=== PATIENT | female | born 1970 | race Caucasian/White ===

== ENCOUNTER → 2018-07-22 | Outpatient (CLI) | payer OTHER ==
--- NOTE | 2018-07-24 10:13 | MR ---
EXAMINATION TYPE: MR brain/cspine wo DATE OF EXAM: 07/22/2018 8:46 PM COMPARISON: NONE HISTORY: Bilateral occipital neuralgia, Neck pain Multiplanar and multispin-echo imaging of the brain was performed . The ventricles, basal cisterns and sulci overlying the cerebral convexities are within normal limits. There is no evidence for midline shift or mass effect. Acute intracranial hemorrhage or extra-axial collection is not evident. The brain parenchyma reveals no abnormal increased signal. No acute edema is identified. The paranasal sinuses and mastoid air cells are well-aerated. IMPRESSION: Unremarkable MRI of the brain. EXAMINATION TYPE: MR brain/cspine wo DATE OF EXAM: 07/22/2018 8:46 PM COMPARISON: NONE HISTORY: Bilateral occipital neuralgia, Neck pain Multiplanar MultiSpin echo imaging of the cervical spine was performed. Comparison: none C2-C3: No evidence for degenerative disc disease. No disc bulge/herniation or protrusion. No Canal stenosis. Foramina are patent bilaterally. C3-C4: There is mild disc desiccation. Posterior disc bulge noted. Minimal effacement ventral thecal sac. No evidence for central stenosis or disc herniation. No foraminal encroachment. C4-C5: Moderate disc desiccation. Moderate circumferential disc bulge with partially encapsulating sp ur resulting in disc endplate complex. There is a moderate effacement of the ventral thecal sac with moderate central stenosis. Degenerative change of the bilateral cervical apophyseal joints resulting in bilateral foraminal encroachment. C5-C6: Moderate disc desiccation. Moderate circumferential disc bulge with partially encapsulating sp ur resulting in disc endplate complex greatest paracentrally and to the left. There is a moderate eff acement of the ventral thecal sac with moderate central stenosis. Degenerative change of the bilatera l cervical apophyseal joints resulting in bilateral foraminal encroachment. C6-C7: Moderate disc desiccation. Moderate circumferential disc bulge greatest posterior centrally an d to the left. Effacement ventral thecal sac and left foraminal encroachment. No evidence for central stenosis. C7-T1: No evidence for degenerative disc disease. No disc bulge/herniation or protrusion. No Canal stenosis. Foramina are patent bilaterally. Cervical segments are intact. There is normal alignment. Cervical spinal cord is of normal signal. Craniovertebral junction relationships are within normal limits. IMPRESSION: 1. Multilevel degenerative disc disease. 2. Central stenosis at C4-5 and C5-6. 3. Multilevel foraminal encroachment.
== END | disposition home or self-care (01) ==
LOC: RADMRIMAIN 19:55
PROVIDERS: ATTEND Psychiatry & Neurology Neurology
DX: M48.02 Spinal stenosis, cervical region (principal); M50.30 Other cervical disc degeneration, unspecified cervical region; G43.009 Migraine without aura, not intractable, without status migrainosus; M54.81 Occipital neuralgia
CPT/HCPCS: 70551; 72141

== ENCOUNTER → 2018-09-14 | Outpatient (CLI) | payer OTHER ==
[2018-09-13 15:35] VITALS: BMI 38.9
[2018-09-14 12:50] VITALS: BP 120/82; PULSE 75; RESP 18
--- NOTE | 2018-09-14 13:09 | P.PAINCN ---
History of Present Illness - Reason for Consult Consult date: 09/14/18 - History of Present Illness This is an initial consultation visit for this 47 years old female with a chronic history of severe neck pain and headache, she reported that she started having headache when she was 9 years old, and intensity of the headache progressed over time and currently she is having neck pain associated with a headache, the pain mostly on the right side, and she's been diagnosed with occipital neuralgia and she was referred to [facility] pain clinic for occipital nerve block, denies any motor or sensory deficit she denies any fever or night sweats she denies any change in the bowel movement or urination, she denies any numbness or tingling sensation in the upper extremities , she reported that the neck movement could aggravate her neck pain and headache ,she reported that all her symptoms only on the right side. Past Medical History Additional Past Medical History / Comment(s): migraine headache, during - induced dtp History of Any Multi-Drug Resistant Organisms: None Reported Past Surgical History: Hysterectomy Additional Past Surgical History / Comment(s): "partial hysterectomy-left ovaries" Past Anesthesia/Blood Transfusion Reactions: No Reported Reaction Past Psychological History: No Psychological Hx Reported Smoking Status: Former smoker Past Alcohol Use History: None Reported Additional Past Alcohol Use History / Comment(s): smoked 12 years 1 pack/week, quit 18 years ago Past Drug Use History: None Reported - Past Family History Mother Family Medical History: No Reported History Medications and Allergies Home Medications Medication Instructions Recorded Confirmed Type SUMAtriptan SUCCINATE [Imitrex] 100 mg PO DAILY PRN 09/13/18 09/13/18 History SUMAtriptan [Imitrex] 20 mg EA NOSTRIL ONCE PRN 09/13/18 09/13/18 History Cyanocobalamin (Vitamin B-12) 1,000 mcg PO DAILY 09/14/18 09/14/18 History [Vitamin B-12] Allergies Allergy/AdvReac Type Severity Reaction Status Date / Time levofloxacin [From Levaquin] Allergy Nausea & Verified 09/14/18 12:26 Vomiting Physical Exam Vitals: Vital Signs Pulse Resp BP Pulse Ox 09/14/18 12:28 75 18 120/82 95 Intake and Output 09/13/18 09/14/18 09/14/18 22:59 06:59 14:59 Other: Weight 99.79 kg Social history : not smoker , NO ETOH , NO Illegal drugs use . Review of Systems : 1- Constitutional : no chills , no fever , no night sweats , 2- Ears : no ear discharge , no change in hearing 3-Nose, Mouth ,Throat ; no bleeding gums, no sore throat , no epistaxis , 4-Cardiovascular : Denies chest pain, , no orthopnea , no palpitation 5-Respiratory : Denies cough , no dyspnea , no hemoptysis 6-Gastrointestinal :, no change in bowel habits , no coffee- ground emesis . 7-Genitourinary : No hematuria , no discharge , no incontinence, 8-Musculoskeletal : No gait dysfunction , report low back pain , 9- Neurological : no ataxia , no tremor , no sezure , report neck pain and headache 10-Psychatric , no suicidal ideation no hallucination 11- Endocrine : no cold intolerence , no polyuria , no polydypsia , 12-Hematologic : no easy bleeding , no easy brusing , 13-Allergic / immunology : no angioedema , no wheezing ,no allergic rhinitis 14-Integumentary : no brttle nails , no change hair / nails , no foot/leg ulcers . Physical Examinations : 1-Constitutional : Cooperative , not in acute distress . 2-HEENT : nech ; supple , no Lymphadenopathy , no Thyromegaly , :eyes , no icterus, no photophobia . ENT : , normal oropharynx , no Thrush 3- Respiratory : Chest clear to auscultations Bilaterally , no wheezing 4- Cardiovascular : regular rate and rhythem , S1 , S2 , no S3 , no S4. 5- Gastrointestinal: abdomen soft no tenderness , no organomegally . 6- Genitourinary : Defferred . 7-Integumentary : No cellulitis , no ulcers , normal skin turgor , no cyanotic . 8- neurologic : Cranial nerve II to XII intact , no focal neurological deffecit 9-psychatric : alert , oriented X 3 , appropriate affect , intact judgment and insight . 10-Lymphatic : no Lymphadenopathy. 11- musculoskeltal: normal gait Cervical Spine motor stregnth in the deltoid and biceps, normal right side , normal Left side motor stregnth biceps and the wrist extensors normal right side ,normal left side . motor stregnth in the triceps muscle . normal Right side , normal Left side deep tendon reflexes normal at the biceps , normal at Brachioradialis , normal at triceps. positive cervical facet loading test on the right side only Tenderness over the right occipital nerve Lumber spine moter stegnth lower extremities ,thigh and legs 5/5 Right side , 5/5 Left side Results Comments: MRI of the cervical spine= multilevel cervical disc desiccation C3 4 C4 5 and C5 6 and C6 7 and moderate central canal stenosis and degenerative changes of the facet joint causing foraminal stenosis at C5 6 and C4 5 Assessment and Plan Plan: Assessment and plan=1-right occipital neuralgia. 2-cervical spondylosis with cervical facet arthropathy. 3-cervical degenerative disc disease. Patient could benefit from right-sided and occipital nerve block , we will do it twice and evaluate her response to the injection The patient continued to have neck pain and headache after the occipital nerve and it will be warranted to do a diagnostic medial branch block right side cervical area, and right third occipital nerve, treatment plan discussed with the patient she agreed with the preceding Time with Patient: Greater than 30 PQRS Measure Charge Sheet Measure #130: Documentation of Current Meds in Medical Chart: Patient's medications documented in chart Measure #226: Tobacco Use: Screen & Cessation Intervention: Pt not a tobacco user Measure #111: Pneumonia Vaccination: Pneumococcal vaccine administered or previously received Measure #47: Advance Care Plan: Advance care planning discussed & documented, pt chose/unable to give Measure #412: Opioid Treatment Agreement: No documentation of signed opioid treatment agreement Measure #408: Opioid Therapy Follow-up Evaluation: Patient had NO f/u eval minimum every 3 months during opioid therapy Measure #317: Preventitive Care & Scrn High Bld Press & F/U: Normal blood pressure, f/u not required Measure #128: Body Mass Index (BMI) Screening & Follow-up: BMI documented ABOVE normal parameters - f/u documented Measure #131: Pain Assessment & Follow-up: Pain positive & plan documented, Follow-up scheduled Measure #431: Unhealthy Alcohol Use Preventative Care & Scrn: Patient not identified as an unhealthy alcohol user PQRS Narrative: Smoking Status Former smoker Do You Want the Pneumonia Vaccine Up to Date Vaccine AT THIS TIME? Blood Pressure 120/82 Pain Intensity [Upper Back] 2 Hx Alcohol Use (MH) No Home Medications: Ambulatory Orders SUMAtriptan SUCCINATE [Imitrex] 100 mg PO DAILY PRN 09/13/18 SUMAtriptan [Imitrex] 20 mg EA NOSTRIL ONCE PRN 09/13/18 Cyanocobalamin (Vitamin B-12) [Vitamin B-12] 1,000 mcg PO DAILY 09/14/18
== END | disposition home or self-care (01) ==
LOC: PNWHC3 12:18
PROVIDERS: ATTEND Specialist
DX: G89.29 Other chronic pain (principal); R51 Headache; M54.81 Occipital neuralgia; M47.812 Spondylosis without myelopathy or radiculopathy, cervical region; M46.82 Other specified inflammatory spondylopathies, cervical region; M50.30 Other cervical disc degeneration, unspecified cervical region; Z79.899 Other long term (current) drug therapy; Z88.1 Allergy status to other antibiotic agents; Z90.711 Acquired absence of uterus with remaining cervical stump; Z87.891 Personal history of nicotine dependence
CPT/HCPCS: 99211

== ENCOUNTER 2018-09-26 08:42 | Day surgery (SDC) | payer OTHER ==
[2018-09-22 13:57] VITALS: BMI 38.9
[2018-09-26 09:01] VITALS: RESP 16; TEMP 97.8
[2018-09-26] MEDS ORDERED: LIDOCAINE 1% 20 ML VIAL (10MG/ML) FOR IV START INTRADERMA ONE (09:01)
[2018-09-26] MEDS ORDERED: LACTATED RINGERS 1,000 ML IV ONE (09:01)
--- NOTE | 2018-09-26 09:36 | P.PCN ---
Date of Procedure: 09/26/18 Procedure(s) Performed: Preoperative diagnoses= 1- Right Greater occipital neuralgia. 2-cervical spondylosis. Postoperative diagnoses= same as preoperative diagnosis. Procedure= Right Greater occipital nerve block Anesthesia= local infiltration with lidocaine 1% 2ml Estimated blood loss=minimal. Procedure indication= the patient had a history of severe chronic neck pain , and headache, diagnosed with occipital neuralgia exam was positive for severe tenderness over the occipital nerve bilaterally, she will be a good candidate occipital nerve block, patient failed conservative management Procedure description= the patient was seen and identified in the preoperative holding area, risks and benefits and alternative of the procedure and possible complications discussed with the patient, and he agreed with the preceding, patient signed the consent, an IV was started, and vital signs were monitored and were stable throughout the procedure, patient was placed in the sitting position or table and the neck area was prepped and draped with a sterile fashion, vital signs were closely monitored during the procedure, 25-gauge needle advanced 1 inch lateral to the occipital protuberance on the right side , at the location of the right occipital nerve , then after negative aspiration for heme and CSF and there was no paresthesia during the injection, 6 ml of Robivacaine 0.5% and 40 mg of Depo-Medrol injected after negative aspiration, the needle removed, Patient tolerated the procedure well without any complication, The patient returned to supine position after the back was cleaned and a Band- Aid applied, the patient transported to recovery room in stable condition and he was monitored for 30 minutes before he was discharged home and then patient was reexamined before going home and patient was discharged in stable condition and patient will follow up with the pain clinic in a few weeks.
[2018-09-26 10:02] VITALS: BP 107/59; PULSE 64
[2018-09-26] MEDS ORDERED: IV FLUID CONTINUATION 1,000 ML IV ONE (10:04)
== END 2018-09-26 10:09 | disposition home or self-care (01) ==
LOC: ORPAIN 08:42
PROVIDERS: ATTEND Specialist
DX: G89.29 Other chronic pain (principal); M54.81 Occipital neuralgia; M47.812 Spondylosis without myelopathy or radiculopathy, cervical region; M50.31 Other cervical disc degeneration, high cervical region; M48.02 Spinal stenosis, cervical region; Z79.899 Other long term (current) drug therapy; Z88.1 Allergy status to other antibiotic agents; Z90.710 Acquired absence of both cervix and uterus; Z87.891 Personal history of nicotine dependence
CPT/HCPCS: 64405; J1030

== ENCOUNTER 2018-10-31 08:34 | Day surgery (SDC) | payer OTHER ==
[2018-10-25 12:51] VITALS: BMI 40.7
[~2018-10-31 08:34] MED LIST: SODIUM CHLORIDE 0.9% 500 ML 500 ML IV SCH
[2018-10-31 09:20] VITALS: RESP 16; TEMP 98
[2018-10-31] MEDS ORDERED: LACTATED RINGERS 1,000 ML IV ONE (09:27)
[2018-10-31] MEDS ORDERED: LIDOCAINE 1% 20 ML VIAL (10MG/ML) FOR IV START INTRADERMA ONE (09:27)
--- NOTE | 2018-10-31 10:15 | P.PCN ---
Date of Procedure: 10/31/18 Surgeon: Alex Zuleta Pathology: none sent Condition: stable Disposition: PACU Description of Procedure: Preoperative diagnoses= 1- Right Greater occipital neuralgia. 2-myofascial pain Postoperative diagnoses= same as preoperative diagnosis. Procedure= Right Greater occipital nerve block, and trigger point injection Anesthesia= local infiltration with lidocaine 1% 2ml Estimated blood loss=minimal. Procedure indication= the patient had a history of severe chronic neck pain ,and headache, diagnosed with occipital neuralgia exam was positive for severe tenderness over the occipital nerve bilaterally, she will be a good candidate occipital nerve block, patient failed conservative management Procedure description= the patient was seen and identified in the preoperative holding area, risks and benefits and alternative of the procedure and possible complications discussed with the patient, and he agreed with the preceding, patient signed the consent, an IV was started, and vital signs were monitored and were stable throughout the procedure, patient was placed in the sitting position or table and the neck area was prepped and draped with a sterile fashion, vital signs were closely monitored during the procedure, 25-gauge needle advanced 1 inch lateral to the occipital protuberance on the right side, at the location of the right occipital nerve , then after negative aspiration for heme and CSF and there was no paresthesia during the injection, 4 ml of Robivacaine 0.5% and 40 mg of Depo-Medrol injected after negative aspiration, the needle removed, Patient tolerated the procedure well without any complication. I then turned my attention into doing the trigger point injection on the right side of her neck including the suboccipital musculature and the right paravertebral musculature using 25-gauge needle I injected 1 mL of the above- mentioned mixture in each point. The patient returned to supine position after the back was cleaned and a Band- Aid applied, the patient transported to recovery room in stable condition and he was monitored for 30 minutes before he was discharged home and then patient was reexamined before going home and patient was discharged in stable condition and patient will follow up with the pain clinic in a few weeks.
[2018-10-31] MEDS ORDERED: IV FLUID CONTINUATION 1,000 ML IV ONE (10:18)
[2018-10-31 10:39] VITALS: BP 119/81; PULSE 72
== END 2018-10-31 10:50 | disposition home or self-care (01) ==
LOC: ORPAIN 08:34
PROVIDERS: ATTEND Anesthesiology
DX: M54.81 Occipital neuralgia (principal); M79.18 Myalgia, other site; G89.29 Other chronic pain; Z88.1 Allergy status to other antibiotic agents; E66.9 Obesity, unspecified; Z68.41 Body mass index [BMI] 40.0-44.9, adult
CPT/HCPCS: 20552; 64405; J2250; J1030; J3010

== ENCOUNTER → 2018-11-28 | Outpatient (CLI) | payer OTHER ==
[2018-11-28 14:27] VITALS: BP 116/71; PULSE 76; RESP 76
--- NOTE | 2018-11-28 15:03 | P.PAINPG ---
Subjective Progress Note Date: 11/28/18 This is follow up visit ,for this 47 years old female with a chronic history of severe neck pain and headache, she reported that she started having headache when she was 9 years old, she was diagnosed with occipital neuralgia and cervical spondylosis and cervical degenerative disc disease, we have done a right sided occipital nerve block she reported that she had 50% improvement of her the front only for short-term, currently she is complaining of headache on both side of her head, and the headache increased with any neck movement, she denies any numbness or tingling sensation in the upper or lower extremities, she denies any motor or sensory deficit, intensity of the headache and pain interfere with her quality of life, she denies any fever or night sweats Physical Examinations : 1-Constitutional : Cooperative , not in acute distress . 2-HEENT : nech ; supple , no Lymphadenopathy , no Thyromegaly , :eyes , no icterus, no photophobia . ENT : , normal oropharynx , no Thrush 3- Respiratory : Chest clear to auscultations Bilaterally , no wheezing 4- Cardiovascular : regular rate and rhythem , S1 , S2 , no S3 , no S4. 5- Gastrointestinal: abdomen soft no tenderness , no organomegally . 6- Genitourinary : Defferred . 7-Integumentary : No cellulitis , no ulcers , normal skin turgor , no cyanotic . 8- neurologic : Cranial nerve II to XII intact , no focal neurological deffecit 9-psychatric : alert , oriented X 3 , appropriate affect , intact judgment and insight . 10-Lymphatic : no Lymphadenopathy. 11- musculoskeltal: normal gait Cervical Spine motor stregnth in the deltoid and biceps, normal right side , normal Left side motor stregnth biceps and the wrist extensors normal right side ,normal left side . motor stregnth in the triceps muscle . normal Right side , normal Left side deep tendon reflexes normal at the biceps , normal at Brachioradialis , normal at triceps. cervical facet loading test on positive bilaterally Tenderness over the occipital nerve bilater ally Lumber spine moter stegnth lower extremities ,thigh and legs 5/5 Right side , 5/5 Left side Results MRI of the cervical spine= multilevel cervical disc desiccation C3 4 C4 5 and C5 6 and C6 7 and moderate central canal stenosis and degenerative changes of the facet joint causing foraminal stenosis at C5 6 and C4 5 Assessment and Plan Plan: Assessment and plan=1-Bilateral occipital neuralgia. 2-cervical spondylosis with cervical facet arthropathy. 3-cervical degenerative disc disease. Patient had 50% improvement of her headache after occipital nerve block Patient could benefit from diagnostic medial branch block cervical area C2 3, C3 4, and third occipital nerve , x2 and if she has positive result from proceed with RFA . Objective - Vital Signs Vital signs: Vital Signs Temp Pulse 76 11/28/18 14:16 Resp 76 H 11/28/18 14:16 BP 116/71 11/28/18 14:16 Pulse Ox 98 11/28/18 14:16 Intake & Output 11/27/18 11/28/18 11/28/18 18:59 06:59 18:59 Weight 104.326 kg PQRS Measure Charge Sheet Measure #130: Documentation of Current Meds in Medical Chart: Patient's medications documented in chart Measure #226: Tobacco Use: Screen & Cessation Intervention: Pt not a tobacco user Measure #111: Pneumonia Vaccination: Pneumococcal vaccine administered or previously received Measure #47: Advance Care Plan: Advance care planning discussed & documented, pt chose/unable to give Measure #412: Opioid Treatment Agreement: No documentation of signed opioid shahab tment agreement Measure #408: Opioid Therapy Follow-up Evaluation: Patient had NO f/u eval minimum every 3 months during opioid therapy Measure #317: Preventitive Care & Scrn High Bld Press & F/U: Normal blood pressure, f/u not required Measure #128: Body Mass Index (BMI) Screening & Follow-up: BMI documented ABOVE normal parameters - f/u documented Measure #131: Pain Assessment & Follow-up: Pain positive & plan documented, Follow-up scheduled Measure #431: Unhealthy Alcohol Use Preventative Care & Scrn: Patient not identified as an unhealthy alcohol user PQRS Narrative: Smoking Status Former smoker Do You Want the Pneumonia Yes Vaccine AT THIS TIME? Blood Pressure 116/71 Pain Intensity [Generalized] 5 Scale Used Numeric (1 - 10) Hx Alcohol Use (MH) No Home Medications: Ambulatory Orders SUMAtriptan SUCCINATE [Imitrex] 100 mg PO DAILY PRN 09/13/18 SUMAtriptan [Imitrex] 20 mg EA NOSTRIL ONCE PRN 09/13/18 Cyanocobalamin (Vitamin B-12) [Vitamin B-12] 1,000 mcg PO DAILY 09/14/18 Controlled Substance Measures - Controlled Substance Measures Is patient prescribed a controlled substance at discharge?: No
== END ==
LOC: PNWHC3 13:57
PROVIDERS: ATTEND Specialist
DX: G89.29 Other chronic pain (principal); M50.30 Other cervical disc degeneration, unspecified cervical region; M47.812 Spondylosis without myelopathy or radiculopathy, cervical region; M46.82 Other specified inflammatory spondylopathies, cervical region; M54.81 Occipital neuralgia; Z87.891 Personal history of nicotine dependence; Z79.899 Other long term (current) drug therapy
CPT/HCPCS: 99211

== ENCOUNTER 2018-12-06 08:38 | Day surgery (SDC) | payer OTHER ==
[2018-11-30 13:25] VITALS: BMI 40.7
[2018-12-06] MEDS ORDERED: LACTATED RINGERS 1,000 ML IV SCH (08:56)
[2018-12-06 09:14] VITALS: RESP 16; TEMP 97.7
[2018-12-06] MEDS ORDERED: LIDOCAINE 1% 20 ML VIAL (10MG/ML) FOR IV START INTRADERMA ONE (09:18)
--- NOTE | 2018-12-06 10:47 | P.PCN ---
Date of Procedure: 12/06/18 Procedure(s) Performed: PREOPERATIVE DIAGNOSIS: Cervical Spondylosis with Facet Arthropathy.without myelopathy. Cervical degenerative disc disease. Occipital neuralgia. Myofascial pain syndrome thoracic area POSTOPERATIVE DIAGNOSIS: Same as. Preop Diagnoses. PROCEDURES: Diagnostic Bilateral C2-3 , C3-4, medial branch blocks, and bilateral Third occipital nerve block with fluoroscopic guidance Trigger point injection on the left side thoracic paravertebral muscle (1 trigger point injected at the level of T8-T9 vertebra ) ANESTHESIA: Local with 1% lidocaine; moderate sedation with Versed. 2 mg , and fentanyl 100 micrograms EBL: Minimal PROCEDURE INDICATION: The patient with neck pain secondary to cervical arthropathy unresponsive to more conservative treatments. PROCEDURE DESCRIPTION / TECHNIQUE: The patient was seen and identified in the preoperative area. Risks, benefits, complications, and alternatives were discussed with the patient, the patient agreed to proceed with the procedure and signed the consent. IV was started. Vital signs remained stable throughout the procedure. Patient was taken to the OR and time out was completed. The patient was placed in the prone position on the procedure table. A pillow was placed under the patients chest to increase the cervical interlaminar space. The cervical area was prepped and draped in the usual sterile fashion. Critical pause was taken. Vital signs were closely monitored during the procedure. Conscious sedation was used during the procedure to decrease patients anxiety. Using cross-table lateral fluoroscopy, the centroid of the trapezoid of right C2 ,C3, was identified, marked, and localized with 1% lidocaine 1 ml at each level for skin and Sub Q infiltrations . Subsequently, a 22 G 3 spinal needle was advanced guided by fluoroscopy to the centroid of the trapezoid of Right C2 C3, [place] tip position was confirmed at the centroid of the trapezoids of Right C2 C3 , with anteroposterior fluoroscopy. And to do the third occipital nerve block, a needle placed within the facet joint changes C2-C3 vertebra , appropriate needle placement confirmed with AP and lateral view, Subsequently, 2 ml of preservative-free Ropivacaine 0.5% mixed with Depo- medrol 20 mg and half ml of the mixture was injected after negative aspiration for blood and CSF. [place] was then removed intact the same procedure was repeated at the left C2-3 ,C3-4 ,leveles and Third occipital nerve Then after that the trigger point injections on the left side thoracic paravertebral muscles at the level of T8-T9 using 25-gauge needle ropivacaine 0.5% 5 ml injected at the 3 different location of the left thoracic paravertebral muscle, injection then after negative aspiration under no paresthesia during the injection. COMPLICATIONS: No acute complications. DISPOSITION / PLANS: The patient was placed in a supine position and transferred to the recovery area in a stable condition for observation and was discharged from the recovery room after meeting discharge criteria. Home discharge instructions given to the patient by the staff. The patient was reexamined prior to discharge. The patient will schedule a follow up in the clinic in 2-4 weeks.
--- NOTE | 2018-12-06 10:53 | FL ---
EXAMINATION TYPE: FL guided pain mgmt statistic DATE OF EXAM: 12/06/2018 HISTORY: Flouroscopy time 14 seconds of fluoroscopy provided. IMPRESSION: 1. Fluoroscopy time.
[2018-12-06 11:03] VITALS: BP 112/67; PULSE 64
[2018-12-06] MEDS ORDERED: IV FLUID CONTINUATION 1,000 ML IV ONE (11:03)
== END 2018-12-06 11:07 | disposition home or self-care (01) ==
LOC: ORPAIN 08:38
PROVIDERS: ATTEND Specialist
DX: M47.812 Spondylosis without myelopathy or radiculopathy, cervical region (principal); M50.30 Other cervical disc degeneration, unspecified cervical region; M54.81 Occipital neuralgia; M79.18 Myalgia, other site; Z88.2 Allergy status to sulfonamides; Z88.8 Allergy status to other drugs, medicaments and biological substances
CPT/HCPCS: 20552; 64490; 64491; J2250; J1030; J3010; 64492; 99152; 99153

== ENCOUNTER 2018-12-20 09:46 | Day surgery (SDC) | payer OTHER ==
[2018-12-16 12:24] VITALS: BMI 40.7
[~2018-12-20 09:46] MED LIST changes: +LACTATED RINGERS 1,000 ML IV SCH; -SODIUM CHLORIDE 0.9% 500 ML 500 ML IV SCH
[2018-12-20 10:42] VITALS: RESP 16; TEMP 98.7
[2018-12-20] MEDS ORDERED: LIDOCAINE 1% 20 ML VIAL (10MG/ML) FOR IV START INTRADERMA ONE (10:50)
--- NOTE | 2018-12-20 11:46 | P.PCN ---
Date of Procedure: 12/20/18 Procedure(s) Performed: PREOPERATIVE DIAGNOSIS: Cervical Spondylosis with Facet Arthropathy.without myelopathy. Cervical degenerative disc disease. Occipital neuralgia. Myofascial pain syndrome thoracic area POSTOPERATIVE DIAGNOSIS: Same as. Preop Diagnoses. PROCEDURES: Diagnostic Bilateral C2-3 , C3-4, medial branch blocks, and bilateral Third occipital nerve block with fluoroscopic guidance Trigger point injection on the left side thoracic paravertebral muscle (1 trigger point injected at the level of T8-T9 vertebra ) ANESTHESIA: Local with 1% lidocaine; moderate sedation with Versed. 2 mg , and fentanyl 100 micrograms EBL: Minimal PROCEDURE INDICATION: The patient with neck pain secondary to cervical arthropathy unresponsive to more conservative treatments. PROCEDURE DESCRIPTION / TECHNIQUE: The patient was seen and identified in the preoperative area. Risks, benefits, complications, and alternatives were discussed with the patient, the patient agreed to proceed with the procedure and signed the consent. IV was started. Vital signs remained stable throughout the procedure. Patient was taken to the OR and time out was completed. The patient was placed in the prone position on the procedure table. A pillow was placed under the patients chest to increase the cervical interlaminar space. The cervical area was prepped and draped in the usual sterile fashion. Critical pause was taken. Vital signs were closely monitored during the procedure. Conscious sedation was used during the procedure to decrease patients anxiety. Using cross-table lateral fluoroscopy, the centroid of the trapezoid of right C2 ,C3, was identified, marked, and localized with 1% lidocaine 1 ml at each level for skin and Sub Q infiltrations . Subsequently, a 22 G 3 spinal needle was advanced guided by fluoroscopy to the centroid of the trapezoid of Right C2 C3, Maurice tip position was confirmed at the centroid of the trapezoids of Right C2 C3 , with anteroposterior fluoroscopy. And to do the third occipital nerve block, a needle placed within the facet joint changes C2-C3 vertebra , appropriate needle placement confirmed with AP and lateral view, Subsequently, 2 ml of preservative-free Ropivacaine 0.5% mixed with Depo- medrol 20 mg and half ml of the mixture was injected after negative aspiration for blood and CSF. Maurice was then removed intact the same procedure was repeated at the left C2-3 ,C3-4 ,leveles and Third occipital nerve Then after that the trigger point injections on the left side thoracic paravertebral muscles at the level of T8-T9 using 25-gauge needle ropivacaine 0.5% 5 ml injected at the 3 different location of the left thoracic paravertebral muscle, injection then after negative aspiration under no paresthesia during the injection. COMPLICATIONS: No acute complications. DISPOSITION / PLANS: The patient was placed in a supine position and transferred to the recovery area in a stable condition for observation and was discharged from the recovery room after meeting discharge criteria. Home discharge instructions given to the patient by the staff. The patient was reexamined prior to discharge. The patient will schedule a follow up in the clinic in 2-4 weeks.
[2018-12-20 12:18] VITALS: BP 109/66; PULSE 66
[2018-12-20] MEDS ORDERED: IV FLUID CONTINUATION 1,000 ML IV ONE (12:24)
--- NOTE | 2018-12-20 13:30 | FL ---
EXAMINATION TYPE: FL guided pain mgmt statistic DATE OF EXAM: 12/20/2018 HISTORY: Flouroscopy time 12 seconds of fluoroscopy provided. IMPRESSION: 1. Fluoroscopy time.
== END 2018-12-20 12:25 | disposition home or self-care (01) ==
LOC: ORPAIN 09:46
PROVIDERS: ATTEND Specialist
DX: M47.812 Spondylosis without myelopathy or radiculopathy, cervical region (principal); M50.30 Other cervical disc degeneration, unspecified cervical region; M54.81 Occipital neuralgia; M79.18 Myalgia, other site
CPT/HCPCS: 20552; 64490; 64491; J2250; J1030; J3010; 99152

== ENCOUNTER → 2019-01-19 | Outpatient (CLI) | payer OTHER ==
[2019-01-19 13:30] VITALS: BP 112/59; PULSE 86; RESP 16
--- NOTE | 2019-01-19 14:06 | P.PAINPG ---
Subjective Progress Note Date: 01/19/19 This is a follow-up visit for this 13 years old female with a chronic history of severe neck pain, and mid back pain, we have done diagnostic medial branch block cervical area C2 3, C3 4 and third occipital nerve block bilaterally patient gets excellent pain relief, and neck pain and headache improved, but she continued to have severe mid back pain with radiation to the left side of the chest wall, associated with burning sensation, the pain increases with any torso movement, and the pain radiates from the mid back on the left side of the anterior chest wall, the pain is not related to deep breathing, she denies any skin rash or any discharge, no fever or night sweats and no motor or sensory deficit Objective - Vital Signs Vital signs: Vital Signs Temp Pulse 86 01/19/19 13:20 Resp 16 01/19/19 13:20 BP 112/59 01/19/19 13:20 Pulse Ox 98 01/19/19 13:20 Intake & Output 01/18/19 01/19/19 01/19/19 18:59 06:59 18:59 Weight 104.326 kg - Exam Physical Examinations : -Constitutiona : Cooperative , not in acute distress . -HEENT : nech ; supple , no Lymphadenopathy , normal thyroid size . eyes : no ptosis , no icterus, no photophobia . ENT : normal of hearing , normal oropharynx , no Thrush . - Respiratory : Chest clear to auscultations Bilaterally , no wheezing , no Rhonchi . - Cardiovascula : regular rate and rhythem , S1 , S2 , no S3 , no S4. - Gastrointestina : abdomen soft no tenderness , bowel sounds , no organomegally . - Genitourinary : Defferred . - neurologic : Cranial nerve II to XII intact , no focal neurological deffecit . -psychatric : alert , oriented X 3 , appropriate affect , intact judgment and insight . -Lymphatic : no Lymphadenopathy . - musculoskeltal : Cervical Spine motor stregnth in the deltoid and biceps, normal right side , normal Left side motor stregnth biceps and the wrist extensors normal right side ,normal left side . motor stregnth in the triceps muscle . normal Right side , normal Left side deep tendon reflexes normal at the biceps , normal at Brachioradialis , normal at triceps. positive cervical facet loading test . Neck full range of motion Thoracic spine= trigger point on the left side thoracic paravertebral area Flexion and rotation of the thoracic spine associated with severe pain Facet loading test positive midthoracic area Lumber spine moter stegnth lower extremities ,thigh and legs 5/5 Right side , 5/5 Left side Assessment and Plan Plan: assessment and plan = neck pain and headache secondary to cervical spondylosis and occipital neuralgia pain improved after medial branch block, which was some months ago and patient feeling no pain in the cervical area after the block Thoracic radiculopathy, most likely secondary to thoracic disc herniation , we will order MRI of the thoracic spine to evaluate Patient had clinical symptoms of T7 to T9 herniated disc , Patient will be seen in the pain clinic in 2 weeks after we get the MRI report Time with Patient: Less than 30 PQRS Measure Charge Sheet Measure #130: Documentation of Current Meds in Medical Chart: Patient's medications documented in chart Measure #226: Tobacco Use: Screen & Cessation Intervention: Pt not a tobacco user Measure #111: Pneumonia Vaccination: Pneumococcal vaccine administered or previously received Measure #47: Advance Care Plan: Advance care planning discussed & documented, pt chose/unable to give Measure #412: Opioid Treatment Agreement: No documentation of signed opioid treatment agreement Measure #408: Opioid Therapy Follow-up Evaluation: Patient had NO f/u eval minimum every 3 months during opioid therapy Measure #317: Preventitive Care & Scrn High Bld Press & F/U: Normal blood pressure, f/u not required Measure #128: Body Mass Index (BMI) Screening & Follow-up: BMI documented ABOVE normal parameters - f/u documented Measure #131: Pain Assessment & Follow-up: Pain positive & plan documented, Follow-up scheduled Measure #431: Unhealthy Alcohol Use Preventative Care & Scrn: Patient not identified as an unhealthy alcohol user PQRS Narrative: Smoking Status Former smoker Do You Want the Pneumonia No Vaccine AT THIS TIME? Blood Pressure 112/59 Pain Intensity [Left Upper 8 Chest] Pain Intensity [Left Posterior 8 Back] Scale Used Numeric (1 - 10) Hx Alcohol Use (MH) No Home Medications: Ambulatory Orders SUMAtriptan SUCCINATE [Imitrex] 100 mg PO DIRECTED PRN 09/13/18 Cyanocobalamin (Vitamin B-12) [Vitamin B-12] 1,000 mcg PO DAILY 09/14/18 SUMAtriptan [Imitrex] 20 mg EA NOSTRIL DIRECTED PRN 11/30/18 Controlled Substance Measures - Controlled Substance Measures Is patient prescribed a controlled substance at discharge?: No
== END ==
LOC: PNWHC3 13:16
PROVIDERS: ATTEND Specialist
DX: M54.2 Cervicalgia (principal); M47.812 Spondylosis without myelopathy or radiculopathy, cervical region; M51.14 Intervertebral disc disorders with radiculopathy, thoracic region; M54.81 Occipital neuralgia; R51 Headache; Z87.891 Personal history of nicotine dependence; Z79.899 Other long term (current) drug therapy
CPT/HCPCS: 99211

== ENCOUNTER 2019-01-21 11:17 | Observation (INO) | payer OTHER ==
[2019-01-21] MEDS ORDERED: SODIUM CHLORIDE 0.9% 1,000 ML IV STA (11:29)
[2019-01-21 11:55] LABS: Basophils % (A) 0 %; Eosinophils # (A) 0.3 k/uL (0-0.7); Eosinophils % (A) 4 %; HCT 42.8 % (34.0-46.0); HGB 14.3 gm/dL (11.4-16.0); Lymphocytes # (A) 1.8 k/uL (1.0-4.8); Lymphocytes % (A) 23 %; MCH 27.7 pg (25.0-35.0); MCHC 33.3 g/dL (31.0-37.0); MCV 83.1 fL (80.0-100.0); Monocytes # (A) 0.4 k/uL (0-1.0); Monocytes % (A) 5 %; Neutrophils % (A) 66 %; Platelet Count 301 k/uL (150-450); RBC 5.15 m/uL (3.80-5.40); RDW 14.2 % (11.5-15.5); WBC 7.7 k/uL (3.8-10.6)
--- NOTE | 2019-01-21 11:56 | XR ---
EXAMINATION TYPE: XR chest 2V DATE OF EXAM: 01/21/2019 HISTORY: Chest Pain. REFERENCE: NONE. FINDINGS: The lungs are clear. Pleural space are clear. The heart is not enlarged. IMPRESSION: NORMAL CHEST.
[2019-01-21 12:14] LABS: INR 0.9 (<1.2); Prothrombin Time 10.2 sec (9.0-12.0)
[2019-01-21 12:16] LABS: Albumin 4.3 g/dL (3.5-5.0); Anion Gap 6 mmol/L; Blood Urea Nitrogen 20 mg/dL (7-17); Calcium 9.7 mg/dL (8.4-10.2); Carbon Dioxide 24 mmol/L (22-30); Chloride 108 mmol/L (98-107); Glucose 85 mg/dL (74-99); Lipase 79 U/L (23-300); Sodium 138 mmol/L (137-145); Total Bilirubin 0.5 mg/dL (0.2-1.3); Total Protein 7.1 g/dL (6.3-8.2)
[2019-01-21] MEDS ORDERED: HEPARIN SODIUM,PORCINE 5,000 UNIT/ML 1 ML VIAL IV PRN (12:20)
[2019-01-21] MEDS ORDERED: HEPARIN SODIUM,PORCINE 5,000 UNIT/ML 1 ML VIAL IV ONE (12:20)
[2019-01-21] MEDS ORDERED: NITROGLYCERIN SL TABS 0.4 MG TAB SUBLINGUAL PRN (12:20)
--- NOTE | 2019-01-21 12:20 | ED ---
Chest Pain HPI - General Chief Complaint: Chest Pain Stated Complaint: chest pain Time Seen by Provider: 01/21/19 11:29 Source: patient, RN notes reviewed, old records reviewed Mode of arrival: wheelchair Limitations: no limitations - History of Present Illness Initial Comments: This is a 48-year-old female the ER for evasive chest pain. Patient complains of left-sided chest heaviness shortness of breath and diaphoresis. Patient is uncontrollably feels that she can't catch air. No recent travel history or sick contacts, no prior history of similar. Patient is no medical history no high blood pressure normal cholesterol no diabetes nonsmoker with no significant family history of heart disease. Patient has had prior stress test about 3 years ago as a routine health maintenance exam, not related to symptoms. Patient's symptoms started today, she was seen by family doctor sent her to ER for evaluation. Patient continues to complain of pain currently MD Complaint: chest pain (Left-sided chest) -: hour(s) Onset: during rest Pain Location: left chest Pain Radiation: none Severity: moderate Severity scale (1-10): 4 Quality: heaviness (Feels like something sitting on her chest) Consistency: constant Improves With: nothing Worsens With: nothing Anginal Symptoms: nausea, diaphoresis, dyspnea Treatments Prior to Arrival: none - Related Data Home Medications Medication Instructions Recorded Confirmed SUMAtriptan SUCCINATE [Imitrex] 100 mg PO DAILY PRN 09/13/18 01/21/19 SUMAtriptan [Imitrex] 1 spray EA NOSTRIL DAILY PRN 11/30/18 01/21/19 Allergies Allergy/AdvReac Type Severity Reaction Status Date / Time levofloxacin [From Levaquin] Allergy Nausea & Verified 01/21/19 11:43 Vomiting sulfa Allergy Dyspnea Uncoded 01/21/19 11:25 Review of Systems ROS Statement: Those systems with pertinent positive or pertinent negative responses have been documented in the HPI. ROS Other: All systems not noted in ROS Statement are negative. Past Medical History Past Medical History: Fibromyalgia, GERD/Reflux Additional Past Medical History / Comment(s): migraine headache, seizure 18 yrs ago after child , induced thrombocytopenia History of Any Multi-Drug Resistant Organisms: None Reported Past Surgical History: Hysterectomy, Tonsillectomy, Uterine Ablation Additional Past Surgical History / Comment(s): PAIN CLINIC PROCEDURES. Past Anesthesia/Blood Transfusion Reactions: Blood Transfusion Reaction, Family History of Problems w/ Anesthesia, Motion Sickness Additional Past Anesthesia/Blood Transfusion Reaction / Comment(s): states her sister had problem from anesthesia "fever during surgery"-not sure where her surgery was done at-not at [facility]. Past Psychological History: No Psychological Hx Reported Smoking Status: Former smoker Past Alcohol Use History: None Reported Past Drug Use History: None Reported - Past Family History Mother Family Medical History: No Reported History Father Family Medical History: Cancer Sister(s) Family Medical History: Cancer Additional Family Medical History / Comment(s): two sisters General Exam Limitations: no limitations General appearance: alert, in no apparent distress Head exam: Present: atraumatic, normocephalic, normal inspection Eye exam: Present: normal appearance, PERRL, EOMI. Absent: scleral icterus, conjunctival injection, periorbital swelling ENT exam: Present: normal exam, mucous membranes moist Neck exam: Present: normal inspection. Absent: tenderness, meningismus, lymphadenopathy Respiratory exam: Present: normal lung sounds bilaterally. Absent: respiratory distress, wheezes, rales, rhonchi, stridor Cardiovascular Exam: Present: regular rate, normal rhythm, normal heart sounds. Absent: systolic murmur, diastolic murmur, rubs, gallop, clicks GI/Abdominal exam: Present: soft, normal bowel sounds. Absent: distended, tenderness, guarding, rebound, rigid Extremities exam: Present: normal inspection, full ROM, normal capillary refill. Absent: tenderness, pedal edema, joint swelling, calf tenderness Back exam: Present: normal inspection Neurological exam: Present: alert, oriented X3, CN II-XII intact Psychiatric exam: Present: normal affect, normal mood Skin exam: Present: warm, dry, intact, normal color. Absent: rash Course Vital Signs 01/21/19 11:22 Temperature 98.6 F Pulse Rate 79 Respiratory 18 Rate Blood Pressure 110/72 O2 Sat by Pulse 98 Oximetry - Reevaluation(s) Reevaluation #1: 01/21/19 12:19 Medical records reviewed Reevaluation #2: 01/21/19 12:19 Patient remains a chest pain Chest Pain MDM - MDM 4 female the ER positive chest pain, patient be admitted for cardiac observation. EKG negative for ST elevation, patient be admitted for serial troponins and cardiology to see Critical Care Time Critical Care Time: Yes Total Critical Care Time: 31 Disposition Clinical Impression: Chest pain Disposition: [facility] Condition: Undetermined Instructions (If sedation given, give patient instructions): Chest Pain (ED) Is patient prescribed a controlled substance at d/c from ED?: No Referrals: Bhavin Payton DO [Primary Care Provider] - 1-2 days
[2019-01-21 12:24] LABS: Partial Thromboplastin Time 20.4 sec (22.0-30.0)
[2019-01-21 12:29] LABS: ALT 24 U/L (9-52); AST 24 U/L (14-36); Alkaline Phosphatase 55 U/L (38-126); Magnesium 1.7 mg/dL (1.6-2.3)
[2019-01-21] MEDS ORDERED: HEPARIN SOD,PORK IN 0.45% NACL 25,000 UNIT in 0.45% NACL 1 250ML.BAG IV SCH (12:30)
[2019-01-21 14:02] VITALS: BMI 41.1
[2019-01-21] MEDS ORDERED: ACETAMINOPHEN TAB 325 MG TAB PO PRN (19:20)
[2019-01-21] MEDS: METOPROLOL TARTRATE 25 MG TAB PO SCH (19:35)
[2019-01-21] MEDS ORDERED: MELATONIN 3 MG TABLET PO SCH (21:00)
[2019-01-21] MEDS ORDERED: MELATONIN 3 MG TABLET PO PRN (21:00)
[2019-01-22 03:32] LABS: Mean Platelet Volume 6.5; Platelet Count 278 k/uL (150-450)
[2019-01-22 04:49] LABS: Cholesterol 220 mg/dL (<200); HDL Cholesterol 52 mg/dL (40-60); LDL Cholesterol,Calculated 148 mg/dL (0-99); Triglycerides 98 mg/dL (<150)
[2019-01-22] MEDS: ONDANSETRON 4 MG/2 ML VIAL IVP PRN ×2 (06:12→11:28)
[2019-01-22] MEDS ORDERED: ATORVASTATIN 80 MG TAB PO SCH (09:00)
[2019-01-22] MEDS ORDERED: ASPIRIN 325 MG TAB PO SCH (09:00)
[2019-01-22] MEDS ORDERED: PANTOPRAZOLE 40 MG TABLET PO SCH (11:30)
[2019-01-22] MEDS: METOPROLOL TARTRATE 25 MG TAB PO SCH (11:33)
[2019-01-22] MEDS ORDERED: CEFDINIR 300 MG CAP PO STA (11:49)
[2019-01-22 12:09] VITALS: BP 122/74; PULSE 74; RESP 18; TEMP 98.3
--- NOTE | 2019-01-22 12:23 | CONS ---
CONSULTATION HISTORY: Ms. Hall is a 48-year-old female who is seen for cardiac evaluation. This patient gives a history that she has been having intermittent chest discomfort for the last 2 weeks. She describes as a sharp pain in the substernal area, shooting back. It comes and goes. It is not definitely related to exertion. The patient has a history of GERD. She denies any history of gallbladder symptoms. She also has been nauseated. Patient denies any history of exertional chest discomfort. The patient denies any history of diabetes or hypertension. Patient had a stress test done about 3 years ago which was normal. The patient also has a history of headaches for which she has been getting injections with improvement. PAST MEDICAL HISTORY: Includes a history of migraine headaches, -induced thrombocytopenia, hysterectomy, tonsillectomy, history of GERD. SOCIAL HISTORY: Patient is a former smoker. PHYSICAL EXAMINATION: At present reveals a 48-year-old female who does not appear to be in any acute distress. Blood pressure is 110/72 mmHg. HEENT examination is negative. Neck is supple. There is no increase in jugular venous pressure. Both the carotid pulses are felt. There is no bruit. Chest is symmetrical. Heart the PMI is not felt. First and second heart sounds are normal. There is no evidence of any murmur. Lungs are clinically clear to auscultation and percussion. Abdomen is negative. Extremities, peripheral pulsations are 2+. EKG shows normal sinus rhythm without any acute ischemic changes. The cardiac enzymes are normal. Patient's LDL cholesterol is 148. IMPRESSION: Chest pain, appears to be atypical chest pain. EKGs and cardiac enzymes are normal. Patient does have a history of gastroesophageal reflux disease. We will recommend to treat the patient with Protonix 40 mg b.i.d. The patient wants to go home. She will be evaluated with a stress echocardiographic study as an outpatient as well as echocardiogram and ultrasound of the gallbladder would be done. We will re-evaluate her hyperlipidemia as an outpatient. MMODL / IJN: [id number] /
--- NOTE | 2019-01-22 12:34 | HP ---
HISTORY AND PHYSICAL HISTORY AND PHYSICAL AND DISCHARGE SUMMARY: DATE OF ADMISSION: January 21, 2019. DATE OF DISCHARGE: January 22, 2019. PRESENTING COMPLAINT: Chest pain. HISTORY OF PRESENTING COMPLAINT: Pleasant 48-year-old patient who follows with Dr. Payton. Chronic stable medical conditions include fibromyalgia, GERD, migraines. The patient, about 10 years ago, has had reflux symptoms. Did have a EEG, which was told was unremarkable. The patient continues to get reflux symptoms. For 2 weeks, she has been having pain in the lower part of the sternum that goes to the back, more so when she lies down and does not affect too much with eating. The patient has also got a cough with green-yellow sputum. No fever. No chills. When she coughs also it hurts in the same area. The pain is not related to activity or rest, does not radiate anywhere except as described above. REVIEW OF SYSTEMS: CONSTITUTIONAL: None. HEENT: None. RESPIRATORY: As above. CARDIOVASCULAR: No precordial pain. GASTROINTESTINAL as above. GENITOURINARY none. MUSCULOSKELETAL: Fibromyalgia. As above. PSYCHIATRY none. NEUROLOGICAL sometimes gets migraines. PAST MEDICAL HISTORY: Fibromyalgia, GERD, migraines, seizures 18 years ago after childbirth, induced thrombocytopenia. PAST SURGICAL HISTORY: Hysterectomy, tonsillectomy, uterine ablation, pain clinic procedures. SOCIAL HISTORY: The patient smoked for 12 years, 1 pack a week, stopped 18 years ago. Alcohol none. . Works in IT. FAMILY HISTORY: Cancer in 2 sisters, type unknown. HOME MEDICATIONS: Imitrex p.r.n. ALLERGIES: TO LEVAQUIN AND SULFA. PHYSICAL EXAMINATION: VITAL SIGNS: Temperature 98, pulse 86, respirations 16, blood pressure 116/77, pulse 98% on room air. GENERAL APPEARANCE: Well built, BMI 41.5. Sitting up, comfortable. EYES: Pupils are equal. Conjunctivae normal. HEENT: External appearance of nose and ears normal. Oral cavity normal. NECK: JVD not raised. Mass not palpable. RESPIRATORY effort normal. LUNGS fair entry. CARDIOVASCULAR: First and second sounds normal. No edema and minimal epigastric tenderness. Liver and spleen not palpable. LYMPHATICS: No lymph nodes palpable in the neck and axilla. PSYCHIATRY: Alert and oriented x3. Mood and affect normal. NEUROLOGICAL: Pupils equal. Cranial nerves grossly intact. Power and sensation grossly intact. INVESTIGATIONS: White count 7.7, hemoglobin 14.3 potassium 5, BUN 20, creatinine 0.82. Troponin x3 negative. LDL 148. EKG tracing personally reviewed by me shows normal sinus rhythm. Chest x-ray film, personally reviewed by me shows no obvious infiltrates. ASSESSMENT: 1. This is a patient who has had 2 weeks of lower chest pain going to the back, especially when she lies down. The patient has had reflux symptoms for over 10 years. Had EGD that was unremarkable at that time, possibly patient reflux symptoms are getting worse when she lies down and gives her esophageal spasm. Otherwise, symptoms not related to exertion. No other cardiac associated symptoms. The patient is overweight of course contributing. 2. This does not appear to be cardiac presentation. We will get a cardiology opinion. 3. Acute bronchitis with some pleurisy symptoms. 4. Morbid obesity BMI 41.5. 5. Chronic fibromyalgia. 6. Chronic gastroesophageal reflux disease. PLAN: I had a lengthy talk with the patient. She needs to get the EGD done as an outpatient. We will have the patient see the central supply nurse. We will start the patient on PPIs. Patient should lose weight. I did get a call from nursing that Cardiology has cleared the patient. We will give a short burst of antibiotics with acute bronchitis. This is both a history physical and discharge summary on this patient. Additional discharge medications: 1. Prilosec 20 mg b.i.d. 2. Omnicef 300 mg q.12 10 capsules. Follow up with Dr. Bhavin Payton in 2-3 days, Dr. Gino Cabezas in 2 weeks, Dr. Ramon Kimbrough in 1 week for EGD. Copy to Bhavin Payton. MMODL / IJN: [id number] /
--- NOTE | 2019-01-22 13:20 | DS ---
DISCHARGE SUMMARY DATE OF ADMISSION: 01/21/2019 DATE OF DISCHARGE: 01/22/2019 Please refer to my H and P for discharge summary which is both an H and P and discharge summary for this patient. MMODL / IJN: [id number] /
== END 2019-01-22 12:17 | disposition home or self-care (01) ==
LOC: EC 11:17 → 1SOBS 12:20
PROVIDERS: ADMIT Hospitalist; ATTEND Hospitalist
DX: R07.89 Other chest pain (principal); J20.9 Acute bronchitis, unspecified; K21.9 Gastro-esophageal reflux disease without esophagitis; M79.7 Fibromyalgia; E66.01 Morbid (severe) obesity due to excess calories; Z68.41 Body mass index [BMI] 40.0-44.9, adult; E78.5 Hyperlipidemia, unspecified; G43.909 Migraine, unspecified, not intractable, without status migrainosus; Z79.899 Other long term (current) drug therapy; Z88.1 Allergy status to other antibiotic agents; Z88.2 Allergy status to sulfonamides; Z90.710 Acquired absence of both cervix and uterus; Z87.891 Personal history of nicotine dependence; Z86.2 Personal history of diseases of the blood and blood-forming organs and certain disorders involving the immune mechanism; Z86.69 Personal history of other diseases of the nervous system and sense organs; Z80.9 Family history of malignant neoplasm, unspecified
CPT/HCPCS: 96366 ×2; 96375; 96376 ×3; 96361; 96365; 99291; 36415; 94760; 93005; 83880; 80061; 80053; 83690; 83735; 84484; 85025; 85049; 85610; 85730 ×2; 71046; G0378 ×2; J1644 ×2; J2405

== ENCOUNTER → 2019-04-20 | Outpatient (CLI) | payer OTHER ==
[2019-04-20 13:28] VITALS: BP 127/84; PULSE 70; RESP 18
--- NOTE | 2019-04-20 14:27 | P.PAINPG ---
Subjective Progress Note Date: 04/20/19 This is a 48-year-old female with cervical mediated headaches. She has had 2 diagnostic medial branch blocks with essentially complete resolution of her pain. She did have prolonged benefit with almost 6 months of pain relief, 100% pain relief. Today she is interested in pursuing a RFA of her right side first as a right side is 70% of her pain and left status 30% of her pain. Of note in the last visit we did order a thoracic MRI. However the belly pain that she was having, was diagnosed as a "chemically burned stomach" thus this is not a major complaint to her anymore. Otherwise she denies any change in her medical history. Objective - Vital Signs Vital signs: Vital Signs Temp Pulse 70 04/20/19 13:23 Resp 18 04/20/19 13:23 BP 127/84 04/20/19 13:23 Pulse Ox 99 04/20/19 13:23 Intake & Output 04/19/19 04/20/19 04/20/19 18:59 06:59 18:59 Weight 104.326 kg - Exam Vital Signs: Reviewed in EMR GENERAL: Well appearing, in no acute distress, PSYCH: Mood and affect is appropriate. Awake, alert, and oriented SKIN: Skin color, texture, turgor normal, no rashes or lesions HEENT: Normocephalic, atraumatic. EOM intact CV: No pedal edema RESP: Respirations are unlabored, no audible wheezing GI: Abdomen non-distended MUSCULOSKELETAL: Bilateral upper and lower extremity strength is normal and symmetric. No atrophy or tone abnormalities are noted. Neck: Positive to palpation over cervical paraspinals. . No pain with neck flexion, extension, or lateral flexion. No obvious deformity or signs of trauma. Normal cervical lordotic curve and normal cervical spine range of motion Extremities: Peripheral joint ROM is full and pain free without obvious instability or laxity in all four extremities. No edema or skin discolorations noted. Gait: Gait is anantalgic NEUR: . No loss of sensation is noted. Cranial nerves are grossly intact. Assessment and Plan Assessment: Assessment: 1. Cervical mediated headaches 2. Obesity Plan: 1. Explanation: I explained to her the process of the cervical artifact, and starting with the right side first. 2. Opioid agreement: None 3. Counseling: The patient was counseled extensively on BODY MASS INDEX, EXERCISE. Specifically, the patient was instructed regarding the importance of weight control, and exercise in the context of both chronic pain and overall health. 4. Procedures: Cervical RFA. Per previous notes she has had 3 needles placed her C2-C3, C3-4, and TON 5. Consultations: None 6. Investigations: Cervical MRI are reviewed, deferring thoracic MRI as this is not a major complaint to her anymore 7. Medications: Continue her current regimen, we are not ready medications 8. Disposition: For procedure , PQRS Measure Charge Sheet Measure #226: Tobacco Use: Screen & Cessation Intervention: Pt not a tobacco user Measure #111: Pneumonia Vaccination: Pneumococcal vaccine administered or previously received Measure #47: Advance Care Plan: Advance care planning discussed & documented, pt chose/unable to give Measure #412: Opioid Treatment Agreement: No documentation of signed opioid treatment agreement Measure #408: Opioid Therapy Follow-up Evaluation: Patient had NO f/u eval minimum every 3 months during opioid therapy Measure #131: Pain Assessment & Follow-up: Pain positive & plan documented, Follow-up scheduled Measure #431: Unhealthy Alcohol Use Preventative Care & Scrn: Patient not identified as an unhealthy alcohol user PQRS Narrative: Smoking Status Former smoker Blood Pressure 127/84 Pain Intensity [Generalized] 1 Scale Used Numeric (1 - 10) Hx Alcohol Use (MH) No Home Medications: Ambulatory Orders SUMAtriptan SUCCINATE [Imitrex] 100 mg PO DAILY PRN 09/13/18 SUMAtriptan [Imitrex] 1 spray EA NOSTRIL DAILY PRN 11/30/18 Omeprazole [PriLOSEC] 20 mg PO AC-BID #60 cap 01/22/19 Fremanezumab-Vfrm [Ajovy] 1 dose IM DIRECTED 04/20/19 Controlled Substance Measures - Controlled Substance Measures Is patient prescribed a controlled substance at discharge?: No
== END ==
LOC: PNWHC3 12:56
PROVIDERS: ATTEND Student in an Organized Health Care Education/Training Program
DX: R51 Headache (principal); E66.9 Obesity, unspecified; Z87.891 Personal history of nicotine dependence; Z79.899 Other long term (current) drug therapy
CPT/HCPCS: 99211

== ENCOUNTER 2019-05-04 06:43 | Day surgery (SDC) | payer OTHER ==
[2019-05-01 12:46] VITALS: BMI 40.7
[2019-05-04] MEDS ORDERED: LIDOCAINE 1% 20 ML VIAL (10MG/ML) FOR IV START INTRADERMA ONE (07:22)
[2019-05-04 07:27] VITALS: RESP 16; TEMP 97.5
[2019-05-04] MEDS ORDERED: LACTATED RINGERS 1,000 ML IV ONE (07:27)
--- NOTE | 2019-05-04 08:27 | P.PCN ---
Date of Procedure: 05/04/19 Procedure(s) Performed: PREOPERATIVE DIAGNOSIS:1- Cervical spondylosis with Facet Arthropathy without myelopathy. 2-cervical degenerative disc disease. 3-occipital neuralgia POSTOPERATIVE DIAGNOSIS: Same as preop diagnosis PROCEDURES: Radiofrequency thermocoagulation Right C2, C3, and the third occipital nerve with Fluroscopy Guidence (fluoroscopy was available in etiology department ) (Radiofrequency thermocoagulation of the right facet joint C2-C3 , and C3- 4 ) ANESTHESIA: Local with Ropivacaine 0.5 % , moderate sedation with fentanyl 100 micrograms and Versed.2 mg EBL: Minimal PROCEDURE INDICATION: The patient with neck pain secondary to cervical arthropathy who had more than 50% relief of her pain with previous diagnostic cervical medial branch block. PROCEDURE DESCRIPTION / TECHNIQUE: The patient was seen and identified in the preoperative area. Risks, benefits, complications, and alternatives were discussed with the patient, the patient agreed to proceed with the procedure and signed the consent. IV was started. Vital signs remained stable throughout the procedure. Patient was taken to the OR and time out was completed. The patient was placed in the prone position on the procedure table. A pillow was placed under the patients chest to increase the cervical interlaminar space. The cervical area was prepped and draped in the usual sterile fashion. Critical pause was taken. Vital signs were closely monitored during the procedure. Conscious sedation was used during the procedure to decrease patients anxiety. Using cross-table lateral fluoroscopy, the centroid of the trapezoid of Right C2 ,C3, were identified, marked, and localized with 1% lidocaine. Subsequently, a 20 [id number] radiofrequency cannula with a 10-mm active tip was advanced guided by fluoroscopy to the centroid of the trapezoid of Right C2 ,C3, and 3 rd needle placed in the center of the facet joints between the C2 and C3 Needle tip position was confirmed at the centroid of the trapezoids of Right C2 ,C3, with anteroposterior fluoroscopy. Each site then underwent sensory testing at 50 Hz and 0 to 1 volt and motor testing at 2 Hz and 0 to 3 volt with local stimulation, but no radicular symptoms down the arm.thereafter the Right C2, C3,and third occipital nerve sites underwent radiofrequency thermocoagulation at 80 degrees celsius for 90 seconds after injecting 0.5 ml of PF Ropivacaine 0.5 %. After thermocoagulation, 1 ml of the block solution containing Depo-Medrol 40 mg and 5 mL of preservative-free normal saline was injected at the Right C2 , C3, levels after negative aspiration of CSF and bloo d and with no paresthesias. Cannulas were retracted while injecting lidocaine 1% until the needle is out. Skin was cleansed and bandages were applied. COMPLICATIONS: No acute complications. DISPOSITION / PLANS: The patient was placed in a supine position and transferred to the recovery area in a stable condition for observation and was discharged from the recovery room after meeting discharge criteria. Home discharge instructions given to the patient by the staff. The patient was reexamined prior to discharge. The patient will schedule a follow up in the clinic in 2-4 weeks.
[2019-05-04] MEDS ORDERED: IV FLUID CONTINUATION 1,000 ML IV ONE (08:29)
[2019-05-04 08:52] VITALS: BP 102/59; PULSE 71
[2019-05-04] MEDS ORDERED: LACTATED RINGERS 1,000 ML IV SCH (11:10)
--- NOTE | 2019-05-04 11:26 | FL ---
Fluoroscopy HISTORY: Pain 5 seconds fluoroscopy time supplied to the referring clinician. 2 intraoperative C-arm images docume nt the procedure. See dictated report from anesthesia.
== END 2019-05-04 09:06 | disposition home or self-care (01) ==
LOC: ORPAIN 06:43
PROVIDERS: ATTEND Specialist
DX: M47.812 Spondylosis without myelopathy or radiculopathy, cervical region (principal); M50.30 Other cervical disc degeneration, unspecified cervical region; M54.81 Occipital neuralgia; Z88.1 Allergy status to other antibiotic agents
CPT/HCPCS: 64633; 64634; J2250; J1030; J3010; 64640; 99152